=== PATIENT | female | born 1990 | race Caucasian/White ===

== ENCOUNTER → 2018-11-05 | Outpatient (CLI) | payer MEDICAID ==
--- NOTE | 2018-11-05 16:27 | US ---
EXAMINATION TYPE: US OB anatomy transabd DATE OF EXAM: 11/05/2018 COMPARISON: NONE HISTORY: O36.62X0 large for dates 2nd trimester LGA TECHNIQUE: Transabdominal (TA) EXAM MEASUREMENTS: GESTATIONAL AGE / DATING Physician Established: (19 weeks/0 days) 04/01/2019 EDC: Dates by LMP: Unknown Dates by First Scan: No previous here Dates by Current Scan for: (19 weeks/1 days) EDC: 03/31/2019 SURVEY IUP: Single PLACENTA: Posterior: 2.8cm hypoechoic area seen PREVIA: No previa PAMELLA: 10.5 cm Normal CERVICAL LENGTH (transabdominal: norm > 3.0cm): 4.0 cm BIOMETRY PRESENTATION: Variable LIE: Longitudinal BPD: 4.2 cm 18 weeks / 6 days HC: 15.5 cm 18 weeks / 4 days AC: 12.6 cm 18 weeks / 2 days FL: 3.3 cm 20 weeks / 3 days ESTIMATED WEIGHT IN GRAMS: 275 grams ESTIMATED WEIGHT IN LBS/OZ: 0 lbs. 10 oz. WEIGHT PERCENTAGE BASED ON ESTABLISHED DATE: 53 % HC/AC: 1.23 Normal FL/AC: 26% HEART RATE: 143 bpm RHYTHM: Normal ANATOMY SEEN (within normal limits): * Lateral Vent (< 1 cm) 0.7 cm * Cisterna Magna (< 1.1 cm) 0.5 cm * Nuchal Fold (< 0.6 cm) 0.2 cm * Cerebellum (varies with age) 1.7 cm Choroid Plexus (bilateral) Midline Falx Cavus Septi Pellucidi Four Chamber Heart Outflow tracts: LVOT/RVOT Stomach Situs Nose / Lips Diaphragm Kidneys (bilateral) Bladder Cord Insert Three Vessel Cord Longitudinal Spine Transverse Spine Arms (bilateral) Legs (bilateral) IMPRESSION: Viable single IUP measuring 19 weeks 1 day with a heart rate of 143bpm and an estimated delivery date of 03/31/2019.
== END ==
LOC: RADUSWWP 14:48
PROVIDERS: ATTEND Obstetrics & Gynecology
DX: O36.62X0 Maternal care for excessive fetal growth, second trimester, not applicable or unspecified (principal); Z3A.19 19 weeks gestation of pregnancy
CPT/HCPCS: 76811

== ENCOUNTER 2018-11-30 09:35 | Outpatient (CLI) | payer MEDICAID ==
[2018-11-30 10:27] VITALS: BP 135/67; PULSE 82; RESP 16; TEMP 99
--- NOTE | 2018-11-30 12:49 | P.MSEPDOC ---
Presenting Problems - Arrival Data Date of Arrival on Unit: 11/30/18 Time of Arrival on Unit: 10:30 Mode of Transport: Ambulatory - Complaint OB-Reason for Admission/Chief Complaint: Other Comment: ligament pain Medical History - Information : 1 Para: 0 Term: 0 : 0 Abortions: Spontaneous or Elective: 0 Number of Living Children: 0 - Gestational Age Gestational Age by NI (wks/days): 22 Weeks and 5 Days Review of Systems - Review of Systems Constitutional: No problems Breast: No problems ENT: No problems Cardiovascular: No problems Respiratory: No problems Gastrointestinal: No problems Genitourinary: No problems Musculoskeletal: No problems Neurological: No problems Skin: No problems Vital Signs - Temperature Temperature: 99.0 F Temperature Source: Oral - Pulse Sitting Pulse Rate: 82 Pulse Assessment Method: Automatic Cuff - Respirations Respiratory Rate: 16 Oxygen Delivery Method: Room Air - Blood Pressure Sitting Blood Pressure: 135/67 Blood Pressure Mean: 89 Blood Pressure Source: Automatic Cuff Medical Screen Scoring (Pre) - Cervical Exam Dilation: 0 cm = 0 Membranes: Intact - Uterine Contractions Frequency: N/A Duration: N/A Intensity: N/A - Maternal Vital Signs Maternal Temperature: N/A - Pain Assessment Pain Location and Character: Left Pain Scale Used: Numeric (1 - 10) Pain Intensity: 0 Pain Management Goal: 0 - Assessment Baseline FHR: 150 Position: N/A Station: N/A - Total Score Total Score (Pre): 0 - Level of Risk Level of Risk: N/A Physician Notification (Pre) - Physician Notified Physician Notified Date: 11/30/18 Physician Notified Time: 10:25 Physician/Practitioner Notifed:: dr norman New Order Received: Yes - Notification Comment Comment: PT TO BE DISCHARGED HOME Disposition - Disposition OB Disposition: Discharge to home Discharge Date: 11/30/18 Discharge Time: 10:26 I agree with the RN Medical Screening Exam: Yes Risk & Benefit of care provided described in d/c instruction: Yes Diagnosis: FALSE LABOR BEFORE 37 COMPLETED WEEKS OF GEST, THIRD TRI
== END 2018-11-30 10:28 | disposition home or self-care (01) ==
LOC: FBPOP 09:35
PROVIDERS: ATTEND Obstetrics & Gynecology
DX: O47.02 False labor before 37 completed weeks of gestation, second trimester (principal); Z3A.22 22 weeks gestation of pregnancy
CPT/HCPCS: 99213

== ENCOUNTER → 2018-12-17 | Outpatient (CLI) | payer MEDICAID ==
[2018-12-17 14:20] LABS: HCT 37.7 % (34.0-46.0); HGB 12.3 gm/dL (11.4-16.0); MCH 28.9 pg (25.0-35.0); MCHC 32.5 g/dL (31.0-37.0); MCV 88.8 fL (80.0-100.0); Mean Platelet Volume 7.4; Platelet Count 190 k/uL (150-450); RBC 4.25 m/uL (3.80-5.40); RDW 13.7 % (11.5-15.5); WBC 12.1 k/uL (3.8-10.6)
== END | disposition home or self-care (01) ==
LOC: LABWHC1 12:36
PROVIDERS: ATTEND Obstetrics & Gynecology
DX: Z34.02 Encounter for supervision of normal first pregnancy, second trimester (principal)
CPT/HCPCS: 36415; 82950; 85027

== ENCOUNTER → 2019-02-27 | Outpatient (CLI) | payer MEDICAID ==
--- NOTE | 2019-02-28 07:36 | US ---
EXAMINATION TYPE: US OB >= 14 wk fetus DATE OF EXAM: 02/27/2019 COMPARISON: US 2019 CLINICAL HISTORY: O36.63X0 LARGE FOR DATESLGA TECHNIQUE: Transabdominal (TA) GESTATIONAL AGE / DATING Physician Established: (35 weeks/3 days) EDC: 03/31/2019 Dates by LMP: Unknown Dates by First Scan: (35 weeks/3 days) EDC: 03/31/2019 Dates by Current Scan: (35 weeks/6 days) EDC: 03/28/2019 SURVEY IUP: Single PLACENTA: Fundal/Posterior PREVIA: Uncertain. Difficult to evaluate cervix. PAMELLA: 16.8 cm Normal CERVICAL LENGTH (transabdominal: norm > 3.0cm): 3.2 cm BIOMETRY PRESENTATION: Vertex LIE: Longitudinal BPD: 8.7 cm 35 weeks / 1 days HC: 31.7 cm 35 weeks / 5 days AC: 32.2 cm 36 weeks / 1 days FL: 7.0 cm 36 weeks / 0 days ESTIMATED WEIGHT IN GRAMS: 2796 grams ESTIMATED WEIGHT IN LBS/OZ: 6 lbs. 3 oz. WEIGHT PERCENTAGE BASED ON ESTABLISHED DATES: 62% HC/AC: 0.98 Normal FL/AC: 22% Normal HEART RATE: 143 bpm RHYTHM: Normal Live single IUP measuring 35 weeks 6 days with a heart rate of 143bpm and an estimated delivery date of 03/28/2019. IMPRESSION: 1. Single live intrauterine with a sonographic age of 35 weeks and 6 days and estimated almaz e of delivery of 03/28/2019, concordant with menstrual age. Weight percentage based on established almaz es of 62%. Amniotic fluid index is within normal limits. 2. Of note the cervix is difficult to visualize given overlying shadowing and evaluation for placenta previa is severely limited.
== END | disposition home or self-care (01) ==
LOC: RADUSWWP 16:07
PROVIDERS: ATTEND Obstetrics & Gynecology
DX: O44.03 Complete placenta previa NOS or without hemorrhage, third trimester (principal); Z3A.35 35 weeks gestation of pregnancy
CPT/HCPCS: 76805

== ENCOUNTER 2019-03-31 12:56 | Inpatient (IN) | payer MEDICAID ==
--- NOTE | 2019-04-02 19:50 | P.HPOB ---
History of Present Illness H&P Date: 04/02/19 Chief Complaint: Induction of labor This is a 28-year-old female 1 para 0 with an estimated of confinement of 04/01/2019, estimated gestational age of 40-2/7 weeks, who presents to labor and delivery for induction of labor. She admits to good movement. She hardin s been feeling irregular contractions and pressure. labs: GC/chlamydia-negative Hemoglobin-13 Random glucose-76 RPR-nonreactive Rubella-immune Toxoplasma-nonreactive Hepatitis B surface antigen-negative nonreactive HIV-nonreactive Blood type-oh positive Quad screen-negative One hour Glucola-83 Group B streptococcus-negative Obstetrical history: . 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 Review of Systems Constitutional: Denies chills, Denies fever Eyes: denies blurred vision, denies pain Ears, nose, mouth and throat: Denies headache, Denies sore throat Cardiovascular: Denies chest pain, Denies shortness of breath Respiratory: Denies cough Gastrointestinal: Reports abdominal pain (Irregular contractions) Genitourinary: Reports pelvic pain, Reports Musculoskeletal: Reports low back pain Neurological: Denies numbness, Denies weakness Psychiatric: Denies anxiety, Denies depression Past Medical History Past Medical History: No Reported History History of Any Multi-Drug Resistant Organisms: None Reported Past Surgical History: No Surgical Hx Reported Past Anesthesia/Blood Transfusion Reactions: No Reported Reaction Past Psychological History: No Psychological Hx Reported Smoking Status: Never smoker Past Alcohol Use History: None Reported Past Drug Use History: None Reported - Past Family History Mother Family Medical History: Diabetes Mellitus Medications and Allergies Home Medications Medication Instructions Recorded Confirmed Type Pnv,Calcium 72/Iron/Folic Acid 1 each PO 04/02/19 History [ Plus Tablet] Allergies Allergy/AdvReac Type Severity Reaction Status Date / Time sulfamethoxazole Allergy Rash/Hives Verified 04/02/19 19:47 [From Bactrim] trimethoprim [From Bactrim] Allergy Rash/Hives Verified 04/02/19 19:47 Exam Osteopathic Statement: *. No significant issues noted on an osteopathic structural exam other than those noted in the History and Physical/Consult. HEENT: Within normal limits Heart: Regular rate and rhythm Lungs: Clear to auscultation bilaterally Abdomen: Cervix: 2-1/2 cm/70%/-1 station heart tones are 140s by Doppler Extremities: Negative Homans Assessment and Plan (1) 40 weeks gestation of Status: Acute Code(s): Z3A.40 - 40 WEEKS GESTATION OF SNOMED Code(s): 15849614 Plan: Proceed with oxytocin induction of labor. Expectant management. Epidural anesthesia if desired.
[2019-04-03] MEDS ORDERED: METHYLERGONOVINE 0.2 MG/ML 1 ML AMP IM PRN (06:02)
[2019-04-03] MEDS ORDERED: TERBUTALINE 1 MG/ML VIAL SQ PRN (06:02)
[2019-04-03] MEDS ORDERED: LIDOCAINE 0.5% (PF) 5 MG/ML (50 ML SDV) SQ PRN (06:02)
[2019-04-03] MEDS ORDERED: OXYTOCIN 30 UNITS/500 ML NS 30 UNIT in SALINE 1 500ML.BAG IV SCH (06:02)
[2019-04-03] MEDS ORDERED: OXYTOCIN 10 UNIT/ML 1 ML VIAL IM PRN (06:02)
[2019-04-03] MEDS ORDERED: LIDOCAINE 1% 20 ML VIAL (10MG/ML) FOR IV START INTRADERMA PRN (06:02)
[2019-04-03] MEDS ORDERED: CARBOPROST TROMETHAMINE 250 MCG/ML 1 ML AMP IM PRN (06:02)
[2019-04-03 06:11] VITALS: BMI 33.2
[2019-04-03] MEDS: LACTATED RINGERS 1,000 ML IV SCH ×3 (06:33→11:28)
[2019-04-03 07:07] LABS: Basophils % (A) 0 %; Eosinophils # (A) 0.2 k/uL (0-0.7); Eosinophils % (A) 2 %; HCT 38.4 % (34.0-46.0); HGB 12.8 gm/dL (11.4-16.0); Lymphocytes # (A) 1.9 k/uL (1.0-4.8); Lymphocytes % (A) 17 %; MCH 28.6 pg (25.0-35.0); MCHC 33.2 g/dL (31.0-37.0); MCV 86.2 fL (80.0-100.0); Mean Platelet Volume 8.9; Monocytes # (A) 0.6 k/uL (0-1.0); Monocytes % (A) 6 %; Neutrophils # (A) 7.8 k/uL (1.3-7.7); Neutrophils % (A) 73 %; Platelet Count 155 k/uL (150-450); RBC 4.45 m/uL (3.80-5.40); RDW 14.5 % (11.5-15.5); WBC 10.6 k/uL (3.8-10.6)
[2019-04-03] MEDS ORDERED: ROPIVACAINE 100 MG, fentaNYL (PF) 200 MCG in SODIUM CHLORIDE 0.9% 76 ML EPIDURAL ONE (11:36)
[2019-04-03] MEDS ORDERED: BENZOCAINE/MENTHOL SPRAY 1 GM/SPRAY AEROSOL TOPICAL PRN (15:36)
[2019-04-03] MEDS ORDERED: diphenhydrAMINE 50 MG CAP PO PRN (15:36)
[2019-04-03] MEDS ORDERED: OXYTOCIN 20 UNITS/1000 ML NS 1,000 ML IV SCH (15:36)
[2019-04-03] MEDS ORDERED: ACETAMINOPHEN TAB 325 MG TAB PO PRN (15:36)
[2019-04-03] MEDS ORDERED: SIMETHICONE 80 MG CHEWABLE PO PRN (15:36)
[2019-04-03] MEDS ORDERED: diphenhydrAMINE 25 MG CAP PO PRN (15:36)
[2019-04-03] MEDS ORDERED: ZOLPIDEM 5 MG TAB PO PRN (15:36)
[2019-04-03] MEDS ORDERED: HYDROCORTISONE 2.5% RECTAL CREAM 30 GM TUBE RECTAL PRN (15:36)
[2019-04-03] MEDS ORDERED: diphenhydrAMINE 50 MG/ML 1 ML VIAL IVP PRN ×2 (15:36)
[2019-04-03] MEDS ORDERED: LANOLIN CREAM 5 GM TUBE TOPICAL PRN (15:36)
[2019-04-03] MEDS ORDERED: WITCH HAZEL 1 EACH MED..PAD TOPICAL PRN (15:36)
[2019-04-03] MEDS: SENNOSIDES-DOCUSATE SODIUM 1 EACH TAB PO SCH ×2 (16:15→20:07)
[2019-04-03] MEDS: IBUPROFEN 600 MG TAB PO PRN ×2 (16:54→23:41)
[2019-04-03] MEDS ORDERED: BUTORPHANOL 1 MG/ML 1 ML VIAL IV PRN (18:33)
--- NOTE | 2019-04-03 18:54 | P.PROBDLV ---
Vaginal Delivery Note - . Vaginal Delivery Note: The patient progressed to complete dilation after oxytocin induction or labor and artificial rupture of membranes. She did receive epidural while in labor. Once reaching complete dilation, she began pushing. Infant's head came to a crown and then delivered across the perineum in a left occiput anterior lie followed by the anterior shoulder. Nose and mouth were bulb suctioned at the perineum. With one further push, the remainder of the delivered and was placed on mother's abdomen. Cord was clamped and cut and infant was evaluated by nursing staff. A viable female was noted with scores of 8 at 1 min. and 9 at 5 min. and infant weight of 9 pounds 15.3 ounces. Placenta delivered shortly thereafter, intact, with a 3 vessel cord. Inspection of the perineum revealed a 2nd degree laceration. This area was anesthetized with1% lidocaine with epinephrine and repaired with 3-0 and 2-0 vicryl in the usual multilayer fashion. Estimated blood loss was 200 cc. Both mother and infant were in stable condition.
--- NOTE | 2019-04-03 18:59 | P.PN ---
Progress Note - Text Progress Note Date: 04/03/19 I was called to see the patient for c/o severe lower back/tailbone pain that started as her epidural wore off. Patient is so uncomfortable that she cannot sit or lay on her back. I examined her and found some softness in the tissues of her lower back from about the level of her hips down to her coccyx, with more tenderness noted at her coccyx area. She did not notice much improvement with ice or ibuprofen. Anesthesia was called and they evaluated her, but do not think it's related to her epidural. I gave her some Stadol for pain and will order an X-ray to evaluate. Will also order some [place] to use as needed after the Stadol wears off.
--- NOTE | 2019-04-03 20:32 | XR ---
EXAMINATION TYPE: XR sacrum coccyx DATE OF EXAM: 04/03/2019 COMPARISON: NONE HISTORY: Back pain TECHNIQUE: 3 views FINDINGS: Segments have normal alignment. Sacroiliac joints are intact. I see no fracture. IMPRESSION: Negative sacrum and coccyx exam. No fracture seen.
--- NOTE | 2019-04-03 20:33 | XR ---
EXAMINATION TYPE: XR lumbar spine 2 or 3V DATE OF EXAM: 04/03/2019 COMPARISON: NONE HISTORY: Back pain TECHNIQUE: 3 views FINDINGS: Vertebra have normal alignment. Posterior element are intact. Sacroiliac joints appear inta ct. There is no compression fracture. IMPRESSION: Negative lumbar spine exam. No fracture.
[2019-04-03] MEDS: HYDROcodone/APAP 7.5-325MG 1 EACH TAB PO PRN (20:53)
[2019-04-04] MEDS: HYDROcodone/APAP 7.5-325MG 1 EACH TAB PO PRN (02:59)
[2019-04-04] MEDS: IBUPROFEN 600 MG TAB PO PRN ×2 (05:53→11:42)
[2019-04-04 07:20] LABS: Basophils % (A) 0 %; Eosinophils # (A) 0.1 k/uL (0-0.7); Eosinophils % (A) 1 %; HCT 31.4 % (34.0-46.0); HGB 10.7 gm/dL (11.4-16.0); Lymphocytes % (A) 11 %; MCH 29.3 pg (25.0-35.0); MCHC 34.1 g/dL (31.0-37.0); MCV 85.9 fL (80.0-100.0); Mean Platelet Volume 8.8; Monocytes # (A) 0.8 k/uL (0-1.0); Monocytes % (A) 4 %; Neutrophils # (A) 14.5 k/uL (1.3-7.7); Neutrophils % (A) 83 %; Platelet Count 158 k/uL (150-450); RBC 3.66 m/uL (3.80-5.40); WBC 17.6 k/uL (3.8-10.6)
[2019-04-04] MEDS: SENNOSIDES-DOCUSATE SODIUM 1 EACH TAB PO SCH (08:35)
--- NOTE | 2019-04-04 08:57 | P.DS ---
Providers Date of admission: 04/03/19 05:53 Expected date of discharge: 04/04/19 Attending physician: Maira Hidalgo Primary care physician: Stated None - Discharge Diagnosis(es) (1) 40 weeks gestation of Current Visit: No Status: Acute Hospital Course: This is a 28 her female 1 para 0 at 40-2/7 weeks who presented for induction of labor. She underwent oxytocin induction of labor and delivered vaginally a viable female with scores of 8 at 1 minute and 9 at 5 minutes and a weight of 9 lbs. 15 oz. Her course was initially complicated by severe lower back pain as soon as her epidural wore off. This did require both IV and oral pain medication. An x-ray was performed and anesthesia was consulted. X-ray showed no fracture and anesthesia did not feel that this was related to her epidural. She was continued on ibuprofen every 6 hours and also given [place] through the night. She states her pain is much bet ter today than it was yesterday. Although she still has it, it is much more tolerable. She would like to potentially go home later today. She is breast- feeding. Lochia is decreasing. Abdominal pain is minimal. Vital signs are stable. Abdomen is soft with fundus nontender. Lower back is mildly tender but much improved from yesterday. Swelling in her lower back seems to be decreased also from yesterday. Extremities show negative Homans. Impression is status post vaginal delivery day #1. Plan is to discharge home later today as long as she feels up to it. She will be given a prescription for ibuprofen and also 3 day supply of [place]. She was counseled on narcotic use and has signed the start opioid talking form. She also will be given a prescription for ibuprofen and a breast pump. She is advised to follow up in the office in 6 weeks. She is advised to call the office if she has any further questions or concerns prior to her appointment time. Procedures: Oxytocin induction of labor Spontaneous vaginal delivery of a viable female on 04/03/2019 Patient Condition at Discharge: Stable Plan - Discharge Summary New Discharge Prescriptions: New Ibuprofen [Motrin] 600 mg PO Q6HR PRN #60 tab PRN Reason: Mild Pain Or Fever >= 100.5 HYDROcodone/APAP 7.5-325MG [[place] 7.5-325] 1 each PO Q6H PRN #12 tab PRN Reason: Pain Continue Pnv,Calcium 72/Iron/Folic Acid [ Plus Tablet] 1 each PO DAILY Discharge Medication List Pnv,Calcium 72/Iron/Folic Acid [ Plus Tablet] 1 each PO DAILY 04/02/19 [History] HYDROcodone/APAP 7.5-325MG [[place] 7.5-325] 1 each PO Q6H PRN #12 tab 04/04/19 [Rx] Ibuprofen [Motrin] 600 mg PO Q6HR PRN #60 tab 04/04/19 [Rx] Follow up Appointment(s)/Referral(s): Maira Hdialgo DO [Doctor of Osteopathic Medicine] - 6 Weeks Activity/Diet/Wound Care/Special Instructions: Activity as tolerated. Diet as tolerated. Discharge Disposition: HOME SELF-CARE
[2019-04-04 09:46] VITALS: RESP 18
[2019-04-04 16:11] VITALS: BP 129/67; PULSE 91; TEMP 98.2
== END 2019-04-04 18:32 | disposition home or self-care (01) | DRG 807 ==
LOC: 4FBP 04-03 05:53
PROVIDERS: ADMIT Obstetrics & Gynecology; ATTEND Obstetrics & Gynecology
PROC: 00HU33Z Insertion of Infusion Device into Spinal Canal, Percutaneous Approach (ICD-10-PCS; principal; 2019-04-03)
PROC: 0KQM0ZZ Repair Perineum Muscle, Open Approach (ICD-10-PCS; principal; 2019-04-03)
PROC: 3E0R3BZ Introduction of Anesthetic Agent into Spinal Canal, Percutaneous Approach (ICD-10-PCS; principal; 2019-04-03)
PROC: 10E0XZZ Delivery of Products of Conception, External Approach (ICD-10-PCS; principal; 2019-04-03)
PROC: 10907ZC Drainage of Amniotic Fluid, Therapeutic from Products of Conception, Via Natural or Artificial Opening (ICD-10-PCS; principal; 2019-04-03)
DX: O70.1 Second degree perineal laceration during delivery (principal); Z37.0 Single live birth; M54.5 Low back pain; Z3A.40 40 weeks gestation of pregnancy; Z83.3 Family history of diabetes mellitus; Z88.2 Allergy status to sulfonamides
CPT/HCPCS: 72100; 72220; 85025; 86850; 86900; 86901